=== PATIENT | female | born 1980 | race Caucasian/White ===

== ENCOUNTER → 2018-07-03 | Outpatient (CLI) | payer OTHER ==
--- NOTE | 2018-07-03 14:34 | DIAGNOSTIC IMAGING REPORT ---
ABDOMEN ULTRASOUND FOR HERNIA CLINICAL HISTORY: R19.00 Abdominal wall bulge [id number] COMPARISON STUDY: Abdomen and pelvis CT 02/26/2016. FINDINGS: There is a moderate-sized fat-containing partially reducible umbilical hernia. No masses or fluid collections within the abdominal wall. IMPRESSION: Fat-containing partially reducible umbilical hernia. Electronically signed by: Randell Hernandez M.D. 07/03/2018 2:33 PM Dictated Date/Time: 07/03/2018 2:32 PM
== END | disposition home or self-care (01) ==
LOC: C.ULTR 13:56
PROVIDERS: ATTEND Nurse Practitioner Family
DX: R19.00 Intra-abdominal and pelvic swelling, mass and lump, unspecified site (principal); K42.9 Umbilical hernia without obstruction or gangrene